=== PATIENT | female | born 1930 | race Caucasian/White ===

== ENCOUNTER 2017-01-19 10:49 | Observation (INO) | payer OTHER, BC ==
[~2017-01-19] VITALS: Ht 152.4 cm; Wt 55.5 kg
[~2017-01-19 10:49] MED LIST: tenormin; zocor
[2017-01-19 12:09] LABS: ANION GAP 11 MEQ/L (2-14); CHLORIDE 101 MEQ/L (99-109); POTASSIUM 3.9 MEQ/L (3.7-5.4); SAMPLE HEMOLYSIS CHECK 0; SAMPLE ICTERIC CHECK 0; SAMPLE LIPEMIA CHECK 0; SODIUM 138 MEQ/L (136-147)
[2017-01-19 12:10] LABS: ADD MIUA? YES; BILIRUBIN NEGATIVE; BLOOD NEGATIVE; COLOR AMBER ((YELLOW)); GLUCOSE (STRIP) NEGATIVE; KETONES NEGATIVE; LEUKOCYTES SMALL; NITRITE NEGATIVE; PROTEIN (STRIP) 30; SPECIFIC GRAVITY 1.018 (1.000-1.030); UROBILINOGEN 0.2 MG/DL (0.2-1.0)
[2017-01-19 12:15] LABS: GFR ESTIMATE (CALCULATED) > 59 mL/min/; GLUCOSE 134 mg/dL (70-99); UREA NITROGEN (BUN) 18 mg/dL (9-23)
[2017-01-19 12:37] LABS: BACTERIA RARE /HPF; BUDDING YEAST 1+; CALCIUM OXALATE CRYSTALS 2+ /HPF; EPITHELIAL CELLS 1+ /HPF; HYALINE CASTS 20-30 /LPF; MUCUS 2+ /LPF; RED BLOOD CELLS 0-5 /HPF (0-5); WHITE BLOOD CELLS 30-40 /HPF (0-5)
[2017-01-19 13:33] LABS: TROP-I INTERPRETATION NEGATIVE; TROPONIN-I 0.01 ng/mL (0.0-0.30)
[2017-01-19] MEDS ORDERED: CENTRUM SILVER1 EAC3 PO (14:09)
[2017-01-19] MEDS ORDERED: CRANBERRY450 M1 PO (14:09)
[2017-01-19] MEDS ORDERED: PRESERVISION T1 EACH PO (14:09)
[2017-01-19] MEDS ORDERED: PREMARIN VAGI42.5 GM VG (14:10)
[2017-01-19] MEDS ORDERED: ZOCOR80 MG PO (14:11)
[2017-01-19 14:21] LABS: EOSINOPHIL (%) 0.2 % (0-5); HEMATOCRIT 47.8 % (36.0-46.0); IMMATURE GRANULOCYTE (%) 0.4 % (0.0-0.7); INSTRUMENT ABS NEUTROPHIL CT 3.6 K/uL; MCH 30.5 PG (29.0-34.0); MCHC 33.1 G/DL (30.0-36.0); MCV 92.3 FL (83-99); MEAN PLAT.VOLUME 12.9 uM^3 (9.5-12.4); MONOCYTE (%) 12.6 % (3-12); MONOCYTE COUNT 0.7 K/uL (0-0.8); NEUTROPHIL (%) 67.5 % (45-76); NEUTROPHIL COUNT 3.6 K/uL (1.8-6.4); PLATELET COUNT 196 K/uL (156-360); RBC DIS.WIDTH-CV 13.3 % (11.8-14.6); RBC DIS.WIDTH-SD 45.3 % (39-53); RED BLOOD COUNT 5.18 M/uL (3.80-5.20); WHITE BLOOD COUNT 5.4 K/uL (4.1-10.2)
[2017-01-19 15:41] VITALS: BP 132/83
[2017-01-19 19:02] LABS: TROP-I INTERPRETATION NEGATIVE; TROPONIN-I 0.02 ng/mL (0.0-0.30)
[2017-01-19 19:51] VITALS: BP 127/96
[2017-01-19 23:48] VITALS: BP 186/73
[2017-01-20 01:06] LABS: TROP-I INTERPRETATION NEGATIVE; TROPONIN-I 0.03 ng/mL (0.0-0.30)
[2017-01-20 03:44] VITALS: BP 143/70
[2017-01-20 08:30] VITALS: BP 159/72
[2017-01-20] MEDS ORDERED: PROAIR HFA8.5 GM IH (09:56)
[2017-01-20] MEDS ORDERED: CEFTIN500 MG PO (09:56)
== END 2017-01-20 11:47 | disposition home or self-care (01) ==
LOC: EME 10:49 → EDOF 13:51 → 5WEST 13:51 → EDOF 13:51 → 5WEST 15:17
PROVIDERS: Internal Medicine; Physician Assistant
DX: N39.0 Urinary tract infection, site not specified (principal); I95.1 Orthostatic hypotension; E78.5 Hyperlipidemia, unspecified
CPT/HCPCS: 71020; 80048; 81003; 83605; 84484; 85025; 85025 91; 93005; 94640; 94664; 99202; 99281; 99285; G0378; J0696; J1650; J7030; J7040; J7050

== ENCOUNTER 2017-04-06 13:46 | Emergency (ER) | payer OTHER, BC ==
[~2017-04-06] VITALS: Ht 165.1 cm; Wt 71.0 kg
[~2017-04-06 13:46] MED LIST changes: +CEFTIN500 MG PO; +CENTRUM SILVER1 EAC3 PO; +CRANBERRY450 M1 PO; +PREMARIN VAGI42.5 GM VG; +PRESERVISION T1 EACH PO; +PROAIR HFA8.5 GM IH; +ZOCOR80 MG PO
[2017-04-06 14:32] LABS: HEMATOCRIT 44.8 % (36.0-46.0); MCH 30.7 PG (29.0-34.0); MCHC 33.3 G/DL (30.0-36.0); MCV 92.4 FL (83-99); RBC DIS.WIDTH-SD 44.5 % (39-53); RED BLOOD COUNT 4.85 M/uL (3.80-5.20); WHITE BLOOD COUNT 7.7 K/uL (4.1-10.2)
[2017-04-06 14:43] LABS: CHLORIDE 107 mEq/L (99-109); POTASSIUM 4.3 mEq/L (3.7-5.4); SODIUM 142 mEq/L (136-147)
[2017-04-06 14:43] LABS: PROTHROMBIN TIME 10.6 (9.2-11.2); PTT 28.4 (25-32)
[2017-04-06 14:45] LABS: GLUCOSE 97 mg/dL (70-99)
[2017-04-06 14:47] LABS: ANION GAP 9 MEQ/L (2-14); TOTAL BILIRUBIN 0.6 mg/dL (0.0-1.0)
[2017-04-06 14:49] LABS: ALKALINE PHOSPHATASE 97 IU/L (3-129); GFR ESTIMATE (CALCULATED) > 59 mL/min/
[2017-04-06 14:50] LABS: UREA NITROGEN (BUN) 17 mg/dL (9-23)
[2017-04-06 15:29] LABS: PLATELET CLUMPS PRESENT - PLATELET COUNT APPEARS ADQ.; PLATELET COUNT UNABLE TO REPORT K/uL (156-360)
[2017-04-06 17:41] VITALS: BP 168/72
== END 2017-04-06 17:50 | disposition home or self-care (01) ==
LOC: EME 13:46
PROVIDERS: Emergency Medicine
DX: S20.222A Contusion of left back wall of thorax, initial encounter (principal); S00.83XA Contusion of other part of head, initial encounter; M54.2 Cervicalgia; M54.5 Low back pain; W01.198A Fall on same level from slipping, tripping and stumbling with subsequent striking against other object, initial encounter; I10 Essential (primary) hypertension
CPT/HCPCS: 70450; 72125; 72128; 72131; 80053; 85027; 85610; 85730; 99281; 99285; J3010

== ENCOUNTER 2018-04-14 20:25 | Emergency (ER) | payer BC, OTHER ==
[~2018-04-14] VITALS: Ht 152.4 cm; Wt 53.6 kg
[2018-04-14] MEDS ORDERED: PERCOCET 5/31 TABLET PO (23:57)
[2018-04-15 00:01] VITALS: BP 149/99
== END 2018-04-15 00:05 | disposition home or self-care (01) ==
LOC: EME 20:25
DX: S70.02XA Contusion of left hip, initial encounter (principal); S93.402A Sprain of unspecified ligament of left ankle, initial encounter; M54.9 Dorsalgia, unspecified; W19.XXXA Unspecified fall, initial encounter; Y93.53 Activity, golf; Z79.01 Long term (current) use of anticoagulants
CPT/HCPCS: 70450; 71045; 73502; 73610; 99281; 99284